=== PATIENT | female | born 2000 | race Caucasian/White ===

== ENCOUNTER 2022-09-04 17:37 | Emergency (ER) | payer MEDICAID ==
[~2022-09-04] VITALS: Ht 154.9 cm; Wt 81.6 kg
[2022-09-04 17:47] VITALS: BP 124/76
[2022-09-04] MEDS ORDERED: IBUPROFEN 600 MG TAB PO ONE (18:25)
[2022-09-04] MEDS ORDERED: LID5T TP (19:29)
[2022-09-04] MEDS ORDERED: IBUP-2213 PO (19:29)
[2022-09-04] MEDS ORDERED: CYCL-711 PO (19:29)
--- NOTE | 2022-09-04 19:32 | NUR ---
MEDICATED PER [facility] ORDER, TOLERATED WELL.
[2022-09-04] MEDS ORDERED: IBUPROFEN 600 MG TAB ONE (19:42)
[2022-09-04 20:00] VITALS: BP 124/76
--- NOTE | 2022-09-04 20:00 | NUR ---
Patient discharged with v/s stable. Written and verbal after care instructions given and explained. Patient alert, oriented and verbalized understanding of instructions. Ambulatory with steady gait. All questions addressed prior to discharge. ID band removed. Patient advised to follow up with PMD. Rx of FLEXERIL, IBUPROFEN given. Patient educated on indication of medication including possible reaction and side effects. Opportunity to ask questions provided and answered.
== END 2022-09-04 20:00 | disposition home or self-care (01) ==
LOC: MED 17:37
DX: S16.1XXA Strain of muscle, fascia and tendon at neck level, initial encounter (principal); R03.0 Elevated blood-pressure reading, without diagnosis of hypertension; V49.88XA Car occupant (driver) (passenger) injured in other specified transport accidents, initial encounter; Y93.89 Activity, other specified; Y92.89 Other specified places as the place of occurrence of the external cause; Y99.8 Other external cause status
CPT/HCPCS: 72040; 99283

== ENCOUNTER 2024-01-05 09:07 | Day surgery (SDC) | payer OTHER ==
[~2024-01-05] VITALS: Ht 154.9 cm; Wt 86.2 kg
[~2024-01-05 09:07] MED LIST: CYCL-711 PO; IBUP-2213 PO; LID5T TP
[2024-01-05] MEDS ORDERED: MIDAZOLAM 5 MG/5 ML VIAL ONE (10:09)
[2024-01-05] MEDS ORDERED: fentaNYL citrate 0.05 MG/ML VIAL ONE (10:09)
[2024-01-05] MEDS: fentaNYL citrate 0.05 MG/ML VIAL IVP ONE (10:20)
== END 2024-01-05 11:48 | disposition home or self-care (01) ==
LOC: MDS 09:07 → MMU 09:08 → MDS 11:48
PROVIDERS: ATTEND Internal Medicine Gastroenterology
DX: R19.7 Diarrhea, unspecified (principal); R14.0 Abdominal distension (gaseous); F32.A Depression, unspecified; Z79.899 Other long term (current) drug therapy; Z98.890 Other specified postprocedural states
CPT/HCPCS: 45331; 88305; J3010; 45330; J2250